=== PATIENT | female | born 1990 | race African-American/Black ===

== ENCOUNTER 2016-09-09 14:07 | Emergency (ER) | payer OTHER ==
[2016-09-09] MEDS ORDERED: ACETAMINOPHEN 500 MG TABLET (FP) PO ONE (14:10)
[2016-09-09 14:13] VITALS: TEMP 97.8; BMI 33.3
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
[2016-09-09 14:37] LABS: URINE APPEARANCE CLEAR; URINE BILIRUBIN NEGATIVE (NEGATIVE); URINE BLOOD NEGATIVE (NEGATIVE); URINE COLOR YELLOW; URINE GLUCOSE (UA) NEGATIVE (NEGATIVE); URINE KETONE 1+ (NEGATIVE); URINE NITRITE NEGATIVE (NEGATIVE); URINE PROTEIN NEGATIVE (NEGATIVE); URINE UROBILINOGEN NEGATIVE E.U./dl (0.2-1.0)
[2016-09-09 14:42] LABS: URINE LEUK ESTERASE TRACE (NEGATIVE)
[2016-09-09 14:44] LABS: URINE MUCUS RARE; URINE RBC 3 /hpf (0-3); URINE WBC 4 /hpf (3-5)
[2016-09-09] MEDS ORDERED: ACETAMINOPHEN 325 MG TABLET (FP) ONE (14:52)
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
[2016-09-09 17:06] VITALS: BP 117/63; PULSE 89
== END 2016-09-09 17:03 | disposition home or self-care (01) ==
LOC: JER 14:07
DX: O99.89 Other specified diseases and conditions complicating pregnancy, childbirth and the puerperium (principal); M54.5 Low back pain; Y04.2XXA Assault by strike against or bumped into by another person, initial encounter; Y93.89 Activity, other specified; Y92.414 Local residential or business street as the place of occurrence of the external cause; Y99.8 Other external cause status; Y07.9 Unspecified perpetrator of maltreatment and neglect; Z3A.13 13 weeks gestation of pregnancy
CPT/HCPCS: 76801-TC; 81003; 81015; 99282-25

== ENCOUNTER 2024-04-23 22:47 | Emergency (ER) | payer SELFPAY ==
[2024-04-23 22:56] VITALS: TEMP 98.1; BMI 38.2
[2024-04-23] MEDS: ONDANSETRON *ODT* 4 MG TABLET SL ONE (23:29)
[2024-04-24] MEDS ORDERED: METOCLOPRAMIDE HCL INJECTION 10 MG/2 ML VIAL ONE (00:04)
[2024-04-24] MEDS ORDERED: ACETAMINOPHEN INJECTION 100 ML ONE (00:05)
[2024-04-24] MEDS: LACTATED RINGERS SOLUTION 1000 ML INFUS.BAG IV ONE (00:36)
[2024-04-24] MEDS: ACETAMINOPHEN 1000 MG/100 ML BAG IVPB ONE (00:36)
[2024-04-24] MEDS: METOCLOPRAMIDE HCL INJECTION 10 MG/2 ML VIAL IVPB ONE (00:36)
[2024-04-24 00:43] LABS: BASO % 0.6 % (0-2.0); EOS % 1.6 % (0-4.5); HEMATOCRIT 37.1 % (32.4-45.2); HEMOGLOBIN 12.8 GM/dL (10.7-15.3); LYMPH % 41.4 % (8-40); MCH 29.3 pg (25.7-33.7); MCHC 34.4 g/dl (32.0-36.0); MONO % 7.7 % (3.8-10.2); NEUT % 48.7 % (42.8-82.8); PLATELET COUNT 347 10^3/uL (134-434); RBC 4.37 M/mm3 (3.60-5.2); RDW 17.1 % (11.6-15.6)
[2024-04-24 00:51] LABS: EPI CELLS >36 /uL (0-25.1); HCG,QUALITATIVE URINE Negative; HYALINE CASTS 2 /uL (0-3.1); URINE APPEARANCE CLOUDY; URINE BACTERIA 796 /uL (0-1359); URINE BILIRUBIN NEGATIVE (NEGATIVE); URINE COLOR YELLOW; URINE GLUCOSE (UA) NEGATIVE (NEGATIVE); URINE KETONE NEGATIVE (NEGATIVE); URINE LEUK ESTERASE 1+ (NEGATIVE); URINE NITRITE NEGATIVE (NEGATIVE); URINE PROTEIN TRACE (NEGATIVE); URINE RBC 24 /uL (0-23.9); URINE UROBILINOGEN 0.2 mg/dL (0.2-1.0); URINE WBC 73 /uL (0-25.8)
[2024-04-24 01:17] LABS: CALCIUM 9.1 mg/dL (8.5-10.1)
[2024-04-24 01:19] LABS: BLOOD UREA NITROGEN 10.6 mg/dL (7-18)
[2024-04-24 01:20] VITALS: BP 142/86; PULSE 98; RESP 14
[2024-04-24 01:21] LABS: CREATININE 0.8 mg/dL (0.55-1.3)
[2024-04-24 01:22] LABS: BILIRUBIN,TOTAL 0.4 mg/dL (0.2-1); TOT PROT 7.5 g/dl (6.4-8.2)
[2024-04-24 02:00] LABS: HIV INTERPRETATION NEGATIVE (NEGATIVE)
== END 2024-04-24 01:31 | disposition home or self-care (01) ==
LOC: JER 22:47
PROC: 3E033NZ Introduction of Analgesics, Hypnotics, Sedatives into Peripheral Vein, Percutaneous Approach (ICD-10-PCS; principal; 2024-04-24)
PROC: 3E033GC Introduction of Other Therapeutic Substance into Peripheral Vein, Percutaneous Approach (ICD-10-PCS; 2024-04-24)
DX: R51.9 Headache, unspecified (principal); R11.0 Nausea
CPT/HCPCS: 36415; 80053; 81003; 82570; 83735; 84156; 84703; 85025; 86803; 87086; 87389; 99284-25; J0131